=== PATIENT | female | born 1990 | race American Indian/Alaskan Native ===

== ENCOUNTER 2017-08-23 22:16 | Emergency (ER) | payer MEDICAID, OTHER ==
[2017-08-23 22:25] VITALS: BP 134/81
[2017-08-23 23:34] LABS: Bilirubin,Urine NEG (Negative); Blood,Urine LG (Negative); Ketones,Urine NEG (Negative); Leukocyte Esterase,Urine LG (Negative); Mucus,Urine FEW /HPF; Nitrite,Urine NEG (Negative); Urobilinogen,Urine < 2.0 mg/dL (<2.0)
[2017-08-23 23:37] LABS: RBC,Urine > 182.0 /HPF (0.0-6.0)
[2017-08-24] MEDS ORDERED: TYLENOL PO ONE (00:53)
[2017-08-24] MEDS ORDERED: KEFLEX PO ONE (00:53)
--- NOTE | 2017-08-24 01:42 | Emergency Department Report ---
ED Female HPI - General Chief complaint: Urogenital-Female Stated complaint: POSS. UTI Time Seen by Provider: 08/24/17 00:51 Source: patient Mode of arrival: Ambulatory Limitations: No Limitations - History of Present Illness Initial comments: pt is a 26 y/o aaf who presents for urinary urgency frequency and dysuria no hematuria no vaginal discharge no abdominal pain no fever chills or n/v no back pain MD Complaint: dysuria Onset/Timin -: days(s) Location: suprapubic Radiation: L flank Severity: moderate Severity scale (0 -10): 4 Quality: aching Consistency: intermittent Worsens with: urination Are you Now?: No Last Menstrual Period: 08/09/17 EDC: 05/16/18 Associated Symptoms: dysuria. denies: vaginal discharge, vaginal bleeding, abdominal pain, nausea/vomiting, fever/chills, headaches, loss of appetite, hematuria, rash, seizure, shortness of breath, syncope, weakness - Related Data Sexually active: Yes : 2 Para: 2 A: 0 Previous Rx's Medication Instructions Recorded Last Taken Type Cephalexin [Keflex] 500 mg PO Q6H #28 capsule 08/29/14 Unknown Rx Potassium Chloride 10 meq PO QDAY #3 capsule.er 08/29/14 Unknown Rx Vit-Fe Fumar-FA [ 1 each PO QDAY #90 tablet 08/29/14 11/03/14 10:00 Rx Vitamin] 1 tab Cephalexin [Keflex] 500 mg PO Q12HR #14 cap 08/24/17 Unknown Rx Ibuprofen 800 mg PO TID PRN #30 tablet 08/24/17 Unknown Rx Allergies Allergy/AdvReac Type Severity Reaction Status Date / Time latex Allergy Swelling Verified 11/07/14 19:34 ED Review of Systems ROS: Stated complaint: POSS. UTI Other details as noted in HPI Constitutional: denies: chills, fever Eyes: denies: eye pain, eye discharge, vision change ENT: denies: ear pain, throat pain Respiratory: denies: cough, shortness of breath, wheezing Cardiovascular: denies: chest pain, palpitations Endocrine: no symptoms reported Gastrointestinal: denies: abdominal pain, nausea, diarrhea Genitourinary: urgency, dysuria, frequency. denies: hematuria, discharge, abnormal menses, dyspareunia Musculoskeletal: denies: back pain, joint swelling, arthralgia Skin: denies: rash, lesions Neurological: denies: headache, weakness, paresthesias Psychiatric: denies: anxiety, depression Hematological/Lymphatic: denies: easy bleeding, easy bruising ED Past Medical Hx - Past Medical History Hx Hypertension: No Hx Congestive Heart Failure: No Hx Diabetes: No Hx Deep Vein Thrombosis: No Hx Renal Disease: No Hx Sickle Cell Disease: No Hx Seizures: No Hx Psychiatric Treatment: Yes (anxiety) Hx Asthma: Yes (last attack 08/24) Hx COPD: No - Social History Smoking Status: Never Smoker - Medications Home Medications: Home Medications Medication Instructions Recorded Confirmed Last Taken Type Cephalexin [Keflex] 500 mg PO Q6H #28 capsule 08/29/14 11/05/14 Unknown Rx Potassium Chloride 10 meq PO QDAY #3 capsule.er 08/29/14 11/05/14 Unknown Rx Vit-Fe Fumar-FA [ 1 each PO QDAY #90 tablet 08/29/14 11/05/14 11/03/14 10:00 Rx Vitamin] 1 tab Cephalexin [Keflex] 500 mg PO Q12HR #14 cap 08/24/17 Unknown Rx Ibuprofen 800 mg PO TID PRN #30 tablet 08/24/17 Unknown Rx ED Physical Exam - General Limitations: No Limitations General appearance: alert, in no apparent distress - Head Head exam: Present: atraumatic, normocephalic - Eye Eye exam: Present: normal appearance - ENT ENT exam: Present: mucous membranes moist - Neck Neck exam: Present: normal inspection - Respiratory Respiratory exam: Present: normal lung sounds bilaterally. Absent: respiratory distress - Cardiovascular Cardiovascular Exam: Present: regular rate, normal rhythm. Absent: systolic murmur, diastolic murmur, rubs, gallop - GI/Abdominal GI/Abdominal exam: Present: soft, normal bowel sounds - Rectal Rectal exam: Present: deferred - External exam: Present: other (exam deferred ) - Extremities Exam Extremities exam: Present: normal inspection - Back Exam Back exam: Present: normal inspection - Neurological Exam Neurological exam: Present: alert, oriented X3 - Psychiatric Psychiatric exam: Present: normal affect, normal mood - Skin Skin exam: Present: warm, dry, intact, normal color. Absent: rash ED Course Vital Signs 08/23/17 22:19 Temperature 98.8 F Pulse Rate 87 Respiratory 16 Rate Blood Pressure 134/81 O2 Sat by Pulse 98 Oximetry ED Medical Decision Making - Lab Data Laboratory Tests 08/23/17 08/24/17 Unknown 00:52 Urine Color Yellow Urine Turbidity Slightly-cloudy Urine pH 8.0 H Ur Specific [place] 1.017 Urine Protein 100 mg/dl Urine Glucose (UA) Neg Urine Ketones Neg Urine Blood Lg Urine Nitrite Neg Urine Bilirubin Neg Urine Urobilinogen < 2.0 Ur Leukocyte Esterase Lg Urine WBC (Auto) 172.0 H Urine RBC (Auto) > 182.0 U Epithel Cells (Auto) 1.0 Urine Mucus Few Urine HCG, Qual Negative - Medical Decision Making pt is a 26 y/o aaf who presents for urinary urgency frequency and dysuria no hematuria no vaginal discharge no abdominal pain no fever chills or n/v no back pain exam no cva tendernes abd soft nontender bs noted x 4 quads no pelvic pain no fever no chills, ua: leuk, wbc, there is no vaginal discharge. plan: keflex x 7 days , follow up with pcp return to ed if symptoms worsen pt verbalized agreement and understanding of discharge plan. Critical care attestation.: If time is entered above; I have spent that time in minutes in the direct care of this critically ill patient, excluding procedure time. ED Disposition Clinical Impression: UTI (urinary tract infection) Qualifiers: Urinary tract infection type: acute cystitis Hematuria presence: without hematuria Qualified Code(s): N30.00 - Acute cystitis without hematuria Disposition: DC-01 TO HOME OR SELFCARE Is pt being admited?: No Does the pt Need Aspirin: No Condition: Good Instructions: Urinary Tract Infection in Women (ED) Prescriptions: Cephalexin [Keflex] 500 mg PO Q12HR #14 cap Ibuprofen 800 mg PO TID PRN #30 tablet PRN Reason: Pain Referrals: PRIMARY CARE, [Primary Care Provider] - 3-5 Days Forms: Work/School Release Form(ED) Time of Disposition: 01:46
== END 2017-08-24 01:52 | disposition home or self-care (01) ==
LOC: ED 22:16
DX: N30.00 Acute cystitis without hematuria (principal)
CPT/HCPCS: 81001; 81025; 99283

== ENCOUNTER 2017-10-24 12:32 | Emergency (ER) | payer SELFPAY ==
--- NOTE | 2017-10-24 14:54 | Emergency Department Report ---
<MANUELA RUBIO - Last Filed: 10/24/17 14:50> ED Female HPI - General Chief complaint: Vaginal Bleeding Stated complaint: VAGINAL BLEEDING Time Seen by Provider: 10/24/17 14:43 Source: patient Mode of arrival: Ambulatory Limitations: No Limitations - History of Present Illness MD Complaint: vaginal bleeding, pelvic pain -: Gradual Radiation: suprapubic Quality: other (pressure and fullness) Consistency: intermittent Are you Now?: Yes (possible 12 weeks ) Associated Symptoms: denies other symptoms - Related Data Sexually active: Yes : 3 Para: 3 (one set of twins) Previous Rx's Medication Instructions Recorded Last Taken Type Cephalexin [Keflex] 500 mg PO Q6H #28 capsule 08/29/14 Unknown Rx Potassium Chloride 10 meq PO QDAY #3 capsule.er 08/29/14 Unknown Rx Vit-Fe Fumar-FA [ 1 each PO QDAY #90 tablet 08/29/14 11/03/14 10:00 Rx Vitamin] 1 tab Cephalexin [Keflex] 500 mg PO Q12HR #14 cap 08/24/17 Unknown Rx Ibuprofen 800 mg PO TID PRN #30 tablet 08/24/17 Unknown Rx Allergies Allergy/AdvReac Type Severity Reaction Status Date / Time latex Allergy Swelling Verified 11/07/14 19:34 ED Review of Systems ROS: Stated complaint: VAGINAL BLEEDING Other details as noted in HPI Comment: All other systems reviewed and negative Constitutional: denies: chills, diaphoresis Respiratory: denies: cough, orthopnea Cardiovascular: denies: chest pain, palpitations, dyspnea on exertion Gastrointestinal: abdominal pain. denies: nausea, vomiting, diarrhea, constipation, hematemesis, hematochezia Genitourinary: denies: urgency, dysuria ED Past Medical Hx - Past Medical History Hx Hypertension: No Hx Congestive Heart Failure: No Hx Diabetes: No Hx Deep Vein Thrombosis: No Hx Renal Disease: No Hx Sickle Cell Disease: No Hx Seizures: No Hx Psychiatric Treatment: Yes (anxiety) Hx Asthma: Yes (last attack 08/24) Hx COPD: No - Social History Smoking Status: Never Smoker Substance Use Type: None - Medications Home Medications: Home Medications Medication Instructions Recorded Confirmed Last Taken Type Cephalexin [Keflex] 500 mg PO Q6H #28 capsule 08/29/14 11/05/14 Unknown Rx Potassium Chloride 10 meq PO QDAY #3 capsule.er 08/29/14 11/05/14 Unknown Rx Vit-Fe Fumar-FA [ 1 each PO QDAY #90 tablet 08/29/14 11/05/14 11/03/14 10:00 Rx Vitamin] 1 tab Cephalexin [Keflex] 500 mg PO Q12HR #14 cap 08/24/17 Unknown Rx Ibuprofen 800 mg PO TID PRN #30 tablet 08/24/17 Unknown Rx ED Physical Exam - General Limitations: No Limitations General appearance: alert, in no apparent distress - Head Head exam: Present: atraumatic, normocephalic, normal inspection - Eye Eye exam: Present: normal appearance, PERRL - ENT ENT exam: Present: normal exam, normal orophraynx, mucous membranes moist - Neck Neck exam: Present: normal inspection, full ROM. Absent: tenderness - Respiratory Respiratory exam: Present: normal lung sounds bilaterally. Absent: respiratory distress, wheezes, rales, rhonchi, chest wall tenderness, accessory muscle use, decreased breath sounds, prolonged expiratory - Cardiovascular Cardiovascular Exam: Present: regular rate, normal rhythm, normal heart sounds - GI/Abdominal GI/Abdominal exam: Present: soft, tenderness (suprapubic tenderness), normal bowel sounds. Absent: distended, guarding, rebound, rigid, organomegaly, mass, bruit, pulsatile mass - Extremities Exam Extremities exam: Present: normal inspection, full ROM - Back Exam Back exam: Present: normal inspection. Absent: CVA tenderness (R), CVA tenderness (L) - Neurological Exam Neurological exam: Present: alert, oriented X3, CN II-XII intact, normal gait - Skin Skin exam: Present: warm, intact, normal color ED Course Vital Signs 10/24/17 12:34 Temperature 97.9 F Pulse Rate 87 Respiratory 18 Rate Blood Pressure 134/80 O2 Sat by Pulse 100 Oximetry Critical care attestation.: If time is entered above; I have spent that time in minutes in the direct care of this critically ill patient, excluding procedure time. ED Disposition Clinical Impression: Threatened in first trimester Subchorionic hemorrhage in first trimester Qualifiers: Fetus number: single or unspecified fetus Qualified Code(s): O41.8X10 - Other specified disorders of amniotic fluid and membranes, first trimester, not applicable or unspecified; O46.8X1 - Other antepartum hemorrhage, first trimester; O46.8X1 - Other antepartum hemorrhage, first trimester Disposition: DC-01 TO HOME OR SELFCARE Condition: Stable Instructions: Threatened Miscarriage (ED), (ED) Additional Instructions: Make sure to follow up with your [facility] Dr. Tato Moreno as discussed. Take all your medications as you've been prescribed. Abstain from sex for the next 2 weeks. If you have any worsening symptoms or develop new symptoms please return to ED immediately. Referrals: TATO MORENO MD [Primary Care Provider] - 3-5 Days Forms: Accompanied Note, Work/School Release Form(ED) <ALEX CHATTERJEEMARNIANIKA Corado - Last Filed: 10/24/17 23:15> ED Female HPI - History of Present Illness Initial comments: Patient is a 27-year-old female at approximately 12 weeks gestation who presents to the ED fall and not from a [facility] visit earlier today complaining of vaginal bleeding 3 days. Patient states she was seen by [facility] earlier today and was told to follow-up in the ER as a precaution. Patient denies any pelvic pain. Patient states that since this she has not had an ultrasound and was worried when she started to see some spotting. She states that her [facility] is Dr. Tato Moreno. She states bleeding is resolved today and is not currently bleeding. Patient denies any fever/chills/nausea vomiting/ chest pain/shortness of breath ED Medical Decision Making - Lab Data Result diagrams: 10/24/17 15:04 10/24/17 15:04 - Radiology Data Radiology results: report reviewed, image reviewed INAL REPORT PROCEDURE: US OB lt; = 14 WEEKS FETUS TECHNIQUE: Real-time transabdominal sonography of the uterus, placenta, amniotic fluid, adnexa, and fetus was performed with image documentation. Measurements were obtained to determine age/size. M-mode Doppler was used to document heartbeat. CPT 19434 HISTORY: abdominal pain, COMPARISON: No prior studies are available for comparison. FINDINGS: CRL: 50 mm, which corresponds to a gestational age of: 11 weeks, 5 days. Embryonic Cardiac Activity: 162 beats per minute Gestational Sac: There is a small crescentic hypoechoic area, which measures 1.2 x 0.6 x 0.8 centimeters, likely a small subchorionic hemorrhage. Amniotic fluid: Normal. Cervix: Limited evaluation Right Ovary: Normal. Left Ovary: Normal. Estimated delivery date: 05/10/2018 IMPRESSION: Single live intrauterine gestation at approximately 11 weeks 5 days. EDC by US 05/10/2018 Small subchorionic hemorrhage. Transcribed By: [facility] Dictated By: AYAH OLIVAREZ M.D. Electronically Authenticated By: AYAH OLIVAREZ M.D. Signed Date/Time: 10/24/17 1623 - Medical Decision Making 27-year-old female presents with vaginal spotting during first trimester ED course: CBC, BMP, U/S ordered. Ultrasound shows single intrauterine as reported above. I discussed this findings with the patient. I discussed with patient that her BUN/creatinine suggest that she is dehydrated and to make sure she increases her water intake daily. Patient stated that vaginal spotting resolved today. Patient was seen by her [facility] today pelvic examination was performed which patient states was told was normal with no bleeding seen. Patient states she had not gotten an ultrasound this wanted to make sure that she had a live . I discussed with patient To follow-up with her LINE [facility] Dr. Moreno in next couple days. I discussed this patient is symptoms worsen or she sees Worsening bleeding to return to ED immediately. ED Disposition Is pt being admited?: No Does the pt Need Aspirin: No Time of Disposition: 22:59
[2017-10-24 15:12] LABS: Bilirubin,Urine NEG (Negative); Blood,Urine NEG (Negative); Color,Urine Yellow (Yellow); Mucus,Urine 2+ /HPF; Nitrite,Urine NEG (Negative)
[2017-10-24 15:29] LABS: Basophils % (Auto) 0.4 % (0.0-1.8); Eosinophils % (Auto) 0.9 % (0.0-4.3); Hematocrit 37.4 % (30.3-42.9); Hemoglobin 12.4 gm/dl (10.1-14.3); Lymphocytes # (Auto) 1.8 K/mm3 (1.2-5.4); Mean Corpuscular HGB Conc 33 % (30-34); Mean Corpuscular Hemoglobin 28 pg (28-32); Mean Corpuscular Volume 83 fl (79-97); Monocytes # (Auto) 0.5 K/mm3 (0.0-0.8); Platelet Count 268 K/mm3 (140-440); Red Blood Count 4.51 M/mm3 (3.65-5.03); Red Cell Distribution Width 14.6 % (13.2-15.2)
[2017-10-24 15:34] LABS: BUN/Creatinine Ratio 13; Blood Urea Nitrogen 5 mg/dL (7-17); Calcium 8.7 mg/dL (8.4-10.2); Hemolysis Index 9
[2017-10-24 15:39] LABS: INR 1.08 (0.87-1.13)
[2017-10-24 15:40] LABS: Partial Thromboplastin Time 27.5 Sec. (24.2-36.6)
--- NOTE | 2017-10-24 20:26 | Ultrasound Report ---
FINAL REPORT PROCEDURE: US OB < = 14 WEEKS FETUS TECHNIQUE: Real-time transabdominal sonography of the uterus, placenta, amniotic fluid, adnexa, and fetus was performed with image documentation. Measurements were obtained to determine age/size. M-mode Doppler was used to document heartbeat. CPT 41401 HISTORY: abdominal pain, COMPARISON: No prior studies are available for comparison. FINDINGS: CRL: 50 mm, which corresponds to a gestational age of: 11 weeks, 5 days. Embryonic Cardiac Activity: 162 beats per minute Gestational Sac: There is a small crescentic hypoechoic area, which measures 1.2 x 0.6 x 0.8 centimeters, likely a small subchorionic hemorrhage. Amniotic fluid: Normal. Cervix: Limited evaluation Right Ovary: Normal. Left Ovary: Normal. Estimated delivery date: 05/10/2018 IMPRESSION: Single live intrauterine gestation at approximately 11 weeks 5 days. EDC by US 05/10/2018 Small subchorionic hemorrhage.
[2017-10-24 23:11] VITALS: BP 122/82
== END 2017-10-24 23:10 | disposition home or self-care (01) ==
LOC: ED 12:32
DX: O20.0 Threatened abortion (principal); O41.8X10 Other specified disorders of amniotic fluid and membranes, first trimester, not applicable or unspecified; Z3A.14 14 weeks gestation of pregnancy; Z91.040 Latex allergy status
CPT/HCPCS: 36415; 76801; 80048; 81001; 84702; 85025; 85610; 85730; 99284

== ENCOUNTER 2018-04-10 22:50 | Outpatient (CLI) | payer OTHER ==
[2018-04-11 00:10] VITALS: BP 113/63
== END 2018-04-11 00:59 | disposition home or self-care (01) ==
LOC: TRG 22:50
PROVIDERS: ATTEND Obstetrics & Gynecology
DX: O26.893 Other specified pregnancy related conditions, third trimester (principal); M54.9 Dorsalgia, unspecified; Z3A.35 35 weeks gestation of pregnancy
CPT/HCPCS: 59025

== ENCOUNTER 2018-04-29 22:16 | Inpatient (IN) | payer OTHER ==
[2018-04-29] MEDS ORDERED: LACTATED RINGERS 1,000 ML ONE (22:24)
[2018-04-29] MEDS ORDERED: ZOFRAN IV PRN (22:25)
[2018-04-29] MEDS ORDERED: NARCAN 0.4 MG/1 ML IV PRN (22:25)
[2018-04-29] MEDS ORDERED: BRETHINE IVP PRN (22:25)
[2018-04-29] MEDS ORDERED: MINERAL OIL PO PRN (22:25)
[2018-04-29] MEDS ORDERED: PHENERGAN PO PRN (22:25)
[2018-04-29] MEDS ORDERED: SUBLIMAZE IV PRN (22:25)
[2018-04-29] MEDS ORDERED: STADOL IV PRN (22:25)
[2018-04-29] MEDS ORDERED: BRETHINE SUB-Q PRN (22:25)
[2018-04-29] MEDS ORDERED: XYLOCAINE 2% INFILTRATI ONE (22:25)
[2018-04-29] MEDS ORDERED: POLYCILLIN/NS 2 GM/100 ML 2 GM/100 ML BAG IV ONE (22:25)
--- NOTE | 2018-04-29 22:35 | History and Physical Report ---
History of Present Illness Date of examination: 04/29/18 Date of admission: 04/29/18 22:16 Chief complaint: Labor History of present illness: Pt is a 27yo BF EDC 05/10/18; EGA 38 3/7 weeks presents to L&D complaining of RUC's q 3-4 mins. She received care at [facility] since15 weeks, and course has been unremarkable. records are not available and GBS is unknown. Past History Past Medical History: asthma Past Surgical History: no surgical history Family/Genetic History: none Social history: no significant social history, single - Obstetrical History Expected Date of Delivery: 05/10/18 Actual Gestation: 38 Week(s) 6 Day(s) : 3 Medications and Allergies Allergies Allergy/AdvReac Type Severity Reaction Status Date / Time latex Allergy Swelling Verified 11/07/14 19:34 Home Medications Medication Instructions Recorded Confirmed Last Taken Type Potassium Chloride 10 meq PO QDAY #3 capsule.er 08/29/14 04/30/18 Unknown Rx Vit-Fe Fumar-FA [ 1 each PO QDAY #90 tablet 08/29/14 04/30/18 11/03/14 10:00 Rx Vitamin] 1 tab cephALEXin [Keflex] 500 mg PO Q6H #28 capsule 08/29/14 04/30/18 Unknown Rx Ibuprofen 800 mg PO TID PRN #30 tablet 08/24/17 04/30/18 Unknown Rx cephALEXin [Keflex] 500 mg PO Q12HR #14 cap 08/24/17 04/30/18 Unknown Rx Review of Systems All systems: negative - Physical Exam Breasts: Positive: deferred Cardiovascular: Regular rate Lungs: Positive: Clear to auscultation Abdomen: Positive: normal appearance Genitourinary (Female): Positive: normal external genitalia Uterus: Positive: enlarged Extremities: Positive: normal - Obstetrical FHR: category 1 Uterine Contraction Monitor Mode: External Cervical Dilatation: 5 (per nurse) Cervical Effacement Percentage: 80 (per nurse) station: -2 Uterine Contraction Pattern: Regular Uterine Tone Measurement Phase: Contraction Uterine Contraction Intensity: Strong/Firm Results Result Diagrams: 04/30/18 13:17 All other labs normal. Assessment and Plan - Patient Problems (1) 38 weeks gestation of Onset Date: 04/30/18 Current Visit: Yes Status: Acute Plan to address problem: A: IUP @ 38 3/7 weeks in labor P: Admit to L&D for expectant vaginal delivery IV Ampicillin Obtain records
[2018-04-29] MEDS: LACTATED RINGERS 1,000 ML IV SCH (22:40)
[2018-04-29 22:48] LABS: Hematocrit 30.2 % (30.3-42.9); Hemoglobin 9.5 gm/dl (10.1-14.3); Mean Corpuscular HGB Conc 31 % (30-34); Mean Corpuscular Volume 72 fl (79-97); Platelet Count 256 K/mm3 (140-440); Red Blood Count 4.19 M/mm3 (3.65-5.03); Red Cell Distribution Width 18.8 % (13.2-15.2)
[2018-04-29 22:50] LABS: Mean Corpuscular Hemoglobin 23 pg (28-32)
[2018-04-29] MEDS ORDERED: PITOCin/NS 20 UNIT/1000ML DRIP 20 UNITS/1,000 ML BAG IV SCH (23:00)
[2018-04-29] MEDS ORDERED: PITOCin/NS 30 UNIT/500ML 30 UNITS/500 ML BAG IV SCH ×2 (23:00)
--- NOTE | 2018-04-30 00:33 | Procedure Note ---
OB Delivery Note - Delivery Date of Delivery: 04/30/18 Surgeon: JIM MONTIEL Estimated blood loss: 200cc - Vaginal Delivery presentation: vertex Delivery position: OA Intrapartum events: precipitous labor- <3hr Delivery induction: none Delivery augmentation: rupture of membranes Delivery monitor: external FHT, external uterine Route of delivery: Delivery placenta: spontaneous Delivery cord: 3 umbilical vessels Episiotomy: none Delivery laceration: none Anesthesia: none Delivery comments: delivered OA and placed on Mom's chest for [id number] bonding and delayed cord clamping, cut by Dad - Infant A at 1 minute: 9 at 5 minutes: 9 Gender: Male ([id number])
[2018-04-30] MEDS ORDERED: TYLENOL PO PRN (00:39)
[2018-04-30] MEDS ORDERED: PHENERGAN PO PRN (00:39)
[2018-04-30] MEDS ORDERED: MILK OF MAGNESIA PO PRN (00:39)
[2018-04-30] MEDS ORDERED: PHENERGAN PR PRN (00:39)
[2018-04-30] MEDS ORDERED: BENADRYL PO PRN (00:39)
[2018-04-30] MEDS ORDERED: ZOFRAN IV PRN (00:39)
[2018-04-30] MEDS ORDERED: DULCOLAX PR PRN (00:39)
[2018-04-30] MEDS ORDERED: LANSINOH TP PRN (00:39)
[2018-04-30] MEDS ORDERED: TUCKS PAD TP PRN (00:39)
[2018-04-30] MEDS ORDERED: SODIUM CHLORIDE FLUSH SYRINGE 10 ML IV PRN (01:00)
[2018-04-30] MEDS ORDERED: PITOCin/NS 20 UNIT/1000ML DRIP 20 UNITS/1,000 ML BAG IV SCH (01:00)
[2018-04-30] MEDS: LACTATED RINGERS 1,000 ML IV SCH (02:10)
[2018-04-30] MEDS ORDERED: AMPICILLIN/NS 1 GM/50 ML 1 GM/50 ML BAG IV SCH (02:28)
[2018-04-30] MEDS: MOTRIN PO SCH ×3 (06:15→22:15)
[2018-04-30] MEDS: FEOSOL PO SCH ×2 (10:10→22:15)
[2018-04-30] MEDS: PRENATAL VITAMIN PO SCH (10:10)
[2018-04-30] MEDS: COLACE PO SCH ×2 (10:10→22:15)
[2018-04-30] MEDS: NORCO 5/325 PO PRN (11:21)
[2018-04-30 13:32] LABS: Hematocrit 26.7 % (30.3-42.9); Hemoglobin 8.3 gm/dl (10.1-14.3)
[2018-05-01] MEDS ORDERED: M-M-R II VACCINE SUB-Q ONE (00:39)
[2018-05-01] MEDS: MOTRIN PO SCH ×3 (04:35→18:00)
[2018-05-01] MEDS ORDERED: BOOSTRIX IM ONE (06:00)
[2018-05-01] MEDS: NORCO 5/325 PO PRN (08:15)
--- NOTE | 2018-05-01 09:59 | Progress Note ---
Assessment and Plan - Patient Problems (1) (normal spontaneous vaginal delivery) Onset Date: 05/01/18 Current Visit: Yes Status: Resolved Plan to address problem: A: S/P - PPD #1 Doing well Asymptomatic anemia - stable P: May go home tomorrow. Subjective - Subjective Date of service: 05/01/18 Principal diagnosis: s/p - PPD #1 Interval history: Pt is feeling well without complaints. Bleeding improved. Patient reports: appetite normal, voiding normally, pain well controlled, flatus , ambulating normally, no dizzy ambulation, no nauseated : doing well, bottle feeding Objective - Vital Signs Latest vital signs: Vital Signs Temp Pulse Resp BP BP Pulse Ox 05/01/18 07:58 98.6 F 78 13 131/77 98 05/01/18 05:35 18 05/01/18 04:35 18 05/01/18 00:00 98.2 F 81 18 111/66 04/30/18 23:15 18 04/30/18 22:15 18 04/30/18 21:45 98.2 F 88 18 128/73 04/30/18 17:01 98.9 F 76 18 125/78 04/30/18 10:11 98.3 F 125/78 Intake and Output 04/30/18 05/01/18 05/01/18 22:59 06:59 14:59 Intake Total 720 120 Output Total 3 1 Balance 717 119 Intake: Oral 720 Intake, Free Water 120 Output: Urine 3 1 Void 3 1 Other: Total, Intake Amount 240 Total, Output Amount 1 1 # Voids Void 2 1 - Exam Breasts: Present: deferred Cardiovascular: Present: Regular rate Lungs: Present: Clear to auscultation Abdomen: Present: normal appearance, soft Uterus: Present: normal, firm, fundal height below umbilicus Extremities: Present: normal - Labs Labs: Abnormal lab results 04/30/18 Range/Units 13:17 Hgb 8.3 L (10.1-14.3) gm/dl Hct 26.7 L (30.3-42.9) % Laboratory Tests 04/29/18 04/29/18 04/29/18 22:30 22:30 22:30 WBC 8.3 RBC 4.19 Hgb 9.5 L Hct 30.2 L MCV 72 L MCH 23 L MCHC 31 RDW 18.8 H Plt Count 256 RPR Nonreactive Blood Type O POSITIVE Antibody Screen Negative 04/30/18 13:17 WBC RBC Hgb 8.3 L Hct 26.7 L MCV MCH MCHC RDW Plt Count RPR Blood Type Antibody Screen
[2018-05-01] MEDS: PRENATAL VITAMIN PO SCH (10:15)
[2018-05-01] MEDS: FEOSOL PO SCH ×2 (10:15→22:23)
[2018-05-01] MEDS: COLACE PO SCH ×2 (10:20→22:23)
[2018-05-02] MEDS: MOTRIN PO SCH ×3 (00:02→13:00)
--- NOTE | 2018-05-02 10:13 | Discharge Summary ---
Providers - Providers Date of Admission: 04/29/18 22:16 Date of discharge: 05/02/18 Attending physician: JIM MONTIEL Primary care physician: JIM MONTIEL Hospitalization Reason for admission: active labor, IUP at term Delivery: Episiotomy: none Other procedures: none complications: none Discharge diagnosis: IUP at term delivered baby: male Hospital course: Unremarkable. Condition at discharge: Good Disposition: DC-01 TO HOME OR SELFCARE - Discharge Diagnoses (1) 38 weeks gestation of Status: Resolved Plan - Discharge Medications Prescriptions: Ferrous Sulfate [Feosol 325 MG tab] 325 mg PO BID #60 tablet Ibuprofen [Motrin 600 MG tab] 600 mg PO Q6HR #30 tablet Vit-Fe Fumar-FA [ Vitamin] 1 each PO QDAY #30 tablet - Provider Discharge Summary Activity: routine, no sex for 6 weeks, no heavy lifting 4 weeks, no strenuous exercise Diet: routine Instructions: routine Additional instructions: [] Smoking cessation referral if applicable(refer to patient education folder for contact #) [] Refer to [facility] Booklet Call your doctor immediately for: * Fever > 100.5 * Heavy vaginal bleeding ( >1 pad per hour) * Severe persistent headache * Shortness of breath * Reddened, hot, painful area to leg or breast * Drainage or odor from incision. * Keep incision clean and dry at all times and follow doctor's instructions regarding bathing/showering - Follow up plan Follow up: JIM MONTIEL MD [Primary Care Provider] - 6 Weeks
[2018-05-02] MEDS: COLACE PO SCH (10:56)
[2018-05-02] MEDS: PRENATAL VITAMIN PO SCH (10:56)
[2018-05-02 12:27] VITALS: BP 113/66
[2018-05-02] MEDS: FEOSOL PO SCH (13:27)
== END 2018-05-02 18:12 | disposition home or self-care (01) | DRG 775 ==
LOC: LD 22:16 → OB 04-30 02:19
PROVIDERS: ADMIT Obstetrics & Gynecology; ATTEND Obstetrics & Gynecology
PROC: 10E0XZZ Delivery of Products of Conception, External Approach (ICD-10-PCS; principal; 2018-04-30)
DX: O62.3 Precipitate labor (principal); O99.52 Diseases of the respiratory system complicating childbirth; Z3A.38 38 weeks gestation of pregnancy; Z37.0 Single live birth; O99.02 Anemia complicating childbirth; D64.9 Anemia, unspecified; J45.909 Unspecified asthma, uncomplicated
CPT/HCPCS: 36415; 85014; 85018; 85027; 86592; 86850; 86900; 86901; 99211; G0463; J0290; J0595; J2590; J7120

== ENCOUNTER 2018-10-31 16:55 | Emergency (ER) | payer OTHER ==
[2018-10-31 20:05] VITALS: BP 134/83
--- NOTE | 2018-10-31 20:54 | Emergency Department Report ---
ED Back Pain/Injury HPI - General Chief Complaint: Back Pain/Injury Stated Complaint: LOWER BACK/HEAD PAIN Time Seen by Provider: 10/31/18 20:16 Source: patient Mode of arrival: Ambulatory Limitations: No Limitations - History of Present Illness Initial Comments: This is a 28-year-old -Iranian female who presents with neck and low back pain. Patient states she didn't have back pain since given 6 ago which has increased over the last week. She reports pain as 5 out of 10 on pain scale and worse with movement. She reports as a dull achy sensation that is intermittent. She also admits to frequency and urgency. She denies dysuria, n umbness or tingling, swelling, bruising, paresthesias, weakness, change in urination or bowel pattern. MD Complaint: back pain Onset/Timin -: week(s) Similar Symptoms Previously: No Place: home Radiation: none Severity: moderate Severity scale (0 -10): 5 Quality: dull, aching Consistency: intermittent Improves With: none Worsens With: movement Context: unknown Associated Symptoms: denies: numbness, difficulty urinating, incontinence, fever/chills - Related Data Previous Rx's Medication Instructions Recorded Last Taken Type Potassium Chloride 10 meq PO QDAY #3 capsule.er 08/29/14 Unknown Rx Vit-Fe Fumar-FA [ 1 each PO QDAY #90 tablet 08/29/14 11/03/14 10:00 Rx Vitamin] 1 tab cephALEXin [Keflex] 500 mg PO Q6H #28 capsule 08/29/14 Unknown Rx Ibuprofen 800 mg PO TID PRN #30 tablet 08/24/17 Unknown Rx cephALEXin [Keflex] 500 mg PO Q12HR #14 cap 08/24/17 Unknown Rx Ferrous Sulfate [Feosol 325 MG tab] 325 mg PO BID #60 tablet 05/02/18 Unknown Rx Ibuprofen [Motrin 600 MG tab] 600 mg PO Q6HR #30 tablet 05/02/18 Unknown Rx Vit-Fe Fumar-FA [ 1 each PO QDAY #30 tablet 05/02/18 Unknown Rx Vitamin] Naproxen 500 mg PO TID PRN #12 tablet 10/31/18 Unknown Rx Allergies Allergy/AdvReac Type Severity Reaction Status Date / Time latex Allergy Swelling Verified 11/07/14 19:34 ED Review of Systems ROS: Stated complaint: LOWER BACK/HEAD PAIN Other details as noted in HPI Constitutional: denies: chills, fever Respiratory: denies: cough, shortness of breath, wheezing Cardiovascular: denies: chest pain, palpitations Gastrointestinal: denies: abdominal pain, nausea, diarrhea Genitourinary: denies: urgency, dysuria, discharge Musculoskeletal: back pain, arthralgia (neck pain). denies: joint swelling Skin: denies: rash, lesions Neurological: denies: headache, weakness, paresthesias Psychiatric: denies: anxiety, depression ED Past Medical Hx Family history: no significant family history ED Back Pain Physical Exam - Exam General: Vital signs noted. No distress. Alert and acting appropriately. Back/Abdomen: No Straight Leg Raise Pain Neuro: Yes Normal Sensation, Yes Normal DTR's, Yes Normal Gait, No Motor Weakness ED Course Vital Signs 10/31/18 20:02 Temperature 97.7 F Pulse Rate 80 Respiratory 18 Rate Blood Pressure 134/83 O2 Sat by Pulse 100 Oximetry ED Medical Decision Making - Radiology Data Radiology results: report reviewed FINAL REPORT PROCEDURE: XR SPINE LUMBOSACRAL 2-3V TECHNIQUE: AP and lateral views of the lumbar spine HISTORY: low back pain COMPARISON: No prior studies are available for comparison. FINDINGS: No scoliosis. Vertebral body heights and alignment are maintained. Disc spaces are preserved. IMPRESSION: No acute osseous abnormality is seen FINAL REPORT PROCEDURE: Cervical spine. TECHNIQUE: Four views. HISTORY: Neck pain. COMPARISON: No prior studies are available for comparison. FINDINGS: The cervical vertebrae have normal height and alignment. There are no fractures. The disc spaces are well maintained. The prevertebral soft tissues have normal thickness. IMPRESSION: Normal study. - Medical Decision Making Patient was examined by me. Vitals are normal and patient is in no acute distress. Obtained a urinalysis, urine test, and x-ray of C-spine and L-spine. Urine test is negative and urinalysis unremarkable. X-rays dictated. Radiologist report reviewed by myself with no acute findings. Patient informed of results. Findings consistent with muscle strain. Start naproxen for pain. Plan discussed with patient to discharge home and treat outpatient. Patient discharged home in stable condition. Follow up with PCP in 2-3 days. Critical care attestation.: If time is entered above; I have spent that time in minutes in the direct care of this critically ill patient, excluding procedure time. ED Disposition Clinical Impression: Neck pain, Strain of muscle, fascia and tendon of lower back, initial encounter Low back pain Qualifiers: Chronicity: acute Back pain laterality: bilateral Sciatica presence: without sciatica Qualified Code(s): M54.5 - Low back pain Cervical muscle strain Qualifiers: Encounter type: initial encounter Qualified Code(s): S16.1XXA - Strain of muscle, fascia and tendon at neck level, initial encounter Disposition: TO HOME OR SELFCARE Is pt being admited?: No Does the pt Need Aspirin: No Condition: Stable Instructions: Muscle Strain (ED), Arthralgia (ED) Additional Instructions: Rest Use ice or heat on affected area for 20 minutes and off for 2 hours. Take pain medication as needed for pain. Follow up with Primary Care Provider in 2-3 days. Prescriptions: Naproxen 500 mg PO TID PRN #12 tablet PRN Reason: Pain , Severe (7-10) Referrals: ZAIDA MILES [Staff Physician] - 3-5 Days [facility] [Outside] - 3-5 Days [facility] [Outside] - 3-5 Days [facility] [Outside] - 3-5 Days Forms: Work/School Release Form(ED) Time of Disposition: 23:11 ED Neck EXAM - General Limitations: No Limitations - Neck 1 - Tenderness from C2 through C4, no erythema or swelling - Back Back exam: full ROM, paraspinal tenderness. denies: CVA tenderness (R), CVA tenderness (L), vertebral tenderness, rash noted Upper Back Exam: Full ROM, Muscle Tenderness/Spasm (right trapezius tenderness on the palpation). denies: Decreased ROM, Vertebral Point Tendernes, Splinting with Breathing - Neurological Neurological Exam: Positive: Alert, Oriented X3 - Psychiatric Psychiatric exam: Positive: normal affect, normal mood - Skin Skin exam: Positive: warm, dry, intact, normal color. Negative: rash
[2018-10-31 21:23] LABS: Bilirubin,Urine NEG (Negative); Blood,Urine NEG (Negative); Color,Urine Yellow (Yellow); Mucus,Urine FEW /HPF; Protein,Urine <15 mg/dL mg/dL (Negative); Urobilinogen,Urine < 2.0 mg/dL (<2.0)
[2018-10-31 21:25] LABS: HCG Qualitative,Urine Negative (Negative)
--- NOTE | 2018-10-31 23:01 | XRay Report ---
FINAL REPORT PROCEDURE: XR SPINE LUMBOSACRAL 2-3V TECHNIQUE: AP and lateral views of the lumbar spine HISTORY: low back pain COMPARISON: No prior studies are available for comparison. FINDINGS: No scoliosis. Vertebral body heights and alignment are maintained. Disc spaces are preserved. IMPRESSION: No acute osseous abnormality is seen
--- NOTE | 2018-10-31 23:19 | XRay Report ---
FINAL REPORT PROCEDURE: Cervical spine. TECHNIQUE: Four views. HISTORY: Neck pain. COMPARISON: No prior studies are available for comparison. FINDINGS: The cervical vertebrae have normal height and alignment. There are no fractures. The disc spaces are well maintained. The prevertebral soft tissues have normal thickness. IMPRESSION: Normal study.
== END 2018-10-31 23:15 | disposition home or self-care (01) ==
LOC: ED 16:55
DX: S16.1XXA Strain of muscle, fascia and tendon at neck level, initial encounter (principal); S39.012A Strain of muscle, fascia and tendon of lower back, initial encounter; X58.XXXA Exposure to other specified factors, initial encounter; Y93.89 Activity, other specified; Y92.89 Other specified places as the place of occurrence of the external cause; Y99.8 Other external cause status
CPT/HCPCS: 72040; 72100; 81001; 81025

== ENCOUNTER 2021-09-12 03:11 | Emergency (ER) | payer OTHER ==
[2021-09-12] MEDS ORDERED: ACETAMINOPHEN 325 MG TAB PO ONE (06:58)
--- NOTE | 2021-09-12 07:01 | Emergency Department Report ---
ED Female HPI - General Chief complaint: Abdominal Pain Stated complaint: LOW BACK PAIN ABDOMINAL PAIN Time Seen by Provider: 09/12/21 06:48 Source: patient Mode of arrival: Ambulatory Limitations: No Limitations - History of Present Illness Initial comments: 30-year-old female presents to the ER today with complaints of left lower quadrant/suprapubic pain. She states that the pain started a day ago. She states that the pain has been intermittent in nature. She denies any associated UTI symptoms, abnormal vaginal discharge or bleeding, nausea or vomiting, diarrhea, or back pain. She denies any fever or chills. She states that her last menstrual cycle was August 24. She states she is not concerned for . She is not currently on any control. She reports the same sexual partner is not concerned for any STDs. MD Complaint: pelvic pain -: days(s) (1) - Related Data Previous Rx's Medication Instructions Recorded Last Taken Type Potassium Chloride 10 meq PO QDAY #3 capsule.er 08/29/14 Unknown Rx Vit-Fe Fumar-FA [ 1 each PO QDAY #90 tablet 08/29/14 11/03/14 10:00 Rx Vitamin] 1 tab cephALEXin [Keflex] 500 mg PO Q6H #28 capsule 08/29/14 Unknown Rx Ibuprofen 800 mg PO TID PRN #30 tablet 08/24/17 Unknown Rx cephALEXin [Keflex] 500 mg PO Q12HR #14 cap 08/24/17 Unknown Rx Ferrous Sulfate [Feosol 325 MG tab] 325 mg PO BID #60 tablet 05/02/18 Unknown Rx Ibuprofen [Motrin 600 MG tab] 600 mg PO Q6HR #30 tablet 05/02/18 Unknown Rx Vit-Fe Fumar-FA [ 1 each PO QDAY #30 tablet 05/02/18 Unknown Rx Vitamin] Naproxen 500 mg PO TID PRN #12 tablet 10/31/18 Unknown Rx Allergies Allergy/AdvReac Type Severity Reaction Status Date / Time latex Allergy Swelling Verified 11/07/14 19:34 ED Review of Systems ROS: Stated complaint: LOW BACK PAIN ABDOMINAL PAIN Other details as noted in HPI Comment: All other systems reviewed and negative Constitutional: denies: chills, fever Eyes: denies: eye pain, eye discharge, vision change ENT: denies: ear pain, throat pain, dental pain, hearing loss, epistaxis, congestion Respiratory: denies: cough, shortness of breath, SOB with exertion, SOB at rest, wheezing Cardiovascular: denies: chest pain, palpitations Gastrointestinal: abdominal pain. denies: nausea, vomiting, diarrhea, constipation, hematemesis, melena, hematochezia Genitourinary: denies: urgency, dysuria, frequency, hematuria, discharge, abnormal menses, dyspareunia Musculoskeletal: denies: back pain, joint swelling, arthralgia Skin: denies: rash, lesions Neurological: denies: headache, weakness, numbness, paresthesias, confusion, abnormal gait, vertigo Psychiatric: denies: anxiety, depression, auditory hallucinations, visual hallucinations, homicidal thoughts, suicidal thoughts Hematological/Lymphatic: denies: easy bleeding, easy bruising, swollen glands ED Past Medical Hx - Past Medical History Previous Medical History?: Yes Hx Hypertension: No Hx Congestive Heart Failure: No Hx Diabetes: No Hx Deep Vein Thrombosis: No Hx Renal Disease: No Hx Sickle Cell Disease: No Hx Seizures: No Hx Psychiatric Treatment: Yes (anxiety) Hx Asthma: Yes (last used in 2016) Hx COPD: No Hx HIV: No - Surgical History Past Surgical History?: No - Social History Smoking Status: Never Smoker Substance Use Type: None - Medications Home Medications: Home Medications Medication Instructions Recorded Confirmed Last Taken Type Potassium Chloride 10 meq PO QDAY #3 capsule.er 08/29/14 04/30/18 Unknown Rx Vit-Fe Fumar-FA [ 1 each PO QDAY #90 tablet 08/29/14 04/30/18 11/03/14 10:00 Rx Vitamin] 1 tab cephALEXin [Keflex] 500 mg PO Q6H #28 capsule 08/29/14 04/30/18 Unknown Rx Ibuprofen 800 mg PO TID PRN #30 tablet 08/24/17 04/30/18 Unknown Rx cephALEXin [Keflex] 500 mg PO Q12HR #14 cap 08/24/17 04/30/18 Unknown Rx Ferrous Sulfate [Feosol 325 MG tab] 325 mg PO BID #60 tablet 05/02/18 Unknown Rx Ibuprofen [Motrin 600 MG tab] 600 mg PO Q6HR #30 tablet 05/02/18 Unknown Rx Vit-Fe Fumar-FA [ 1 each PO QDAY #30 tablet 05/02/18 Unknown Rx Vitamin] Naproxen 500 mg PO TID PRN #12 tablet 10/31/18 Unknown Rx ED Physical Exam - General Limitations: No Limitations General appearance: alert, in no apparent distress - Head Head exam: Present: atraumatic, normocephalic, normal inspection - Eye Eye exam: Present: normal appearance, PERRL, EOMI Pupils: Present: normal accommodation - ENT ENT exam: Present: normal exam, mucous membranes moist - Neck Neck exam: Present: normal inspection, full ROM - Respiratory Respiratory exam: Present: normal lung sounds bilaterally. Absent: respiratory distress, wheezes, rales, rhonchi, stridor - Cardiovascular Cardiovascular Exam: Present: regular rate, normal rhythm, normal heart sounds - GI/Abdominal GI/Abdominal exam: Present: soft. Absent: distended, tenderness, guarding, r ebound - Neurological Exam Neurological exam: Present: alert, oriented X3, CN II-XII intact, normal gait - Psychiatric Psychiatric exam: Present: normal affect, normal mood - Skin Skin exam: Present: intact ED Course Vital Signs 09/12/21 09/12/21 04:26 11:25 Temperature 98.0 F Pulse Rate 75 76 Respiratory 16 18 Rate Blood Pressure 140/80 Blood Pressure 132/81 [Left] O2 Sat by Pulse 97 100 Oximetry ED Medical Decision Making - Lab Data Result diagrams: 09/12/21 08:51 09/12/21 08:51 - Radiology Data Radiology results: report reviewed Patient: ABDIRAHMAN TOBAR MR#: [id number] : 1990 Acct:[id number] Age/Sex: 30 / F ADM Date: 09/12/21 Loc: ED Attending Dr: Ordering Physician: TAD LAMB Date of Service: 09/12/21 Procedure(s): US OB transvaginal Accession Number(s): [id number] cc: TAD LAMB Pelvic ultrasound INDICATION: Left lower quadrant pain FINDINGS: Single live intrauterine . No second pole noted the gestational sac measures 26.2 mm measuring 7 weeks 4 days. Schneider-rump length 2.1 mm measuring 7 weeks 1 day. heart rate 138. There is a cystic lesion left ovary measuring 5 x 3 x 8 mm. Otherwise ovaries appear normal. Uterus measures 12 x 5 x 6 cm. IMPRESSION: Single live intrauterine measuring 7 weeks 3 days. Signer Name: Cuong Mcdowell MD Signed: 09/12/2021 10:43 AM Workstation Name: [id number] Transcribed By: JOSTIN Dictated By: DOUG CMDOWELL MD Electronically Authenticated By: DOUG MCDOWELL MD Signed Date/Time: 09/12/21 104 DD/ 41 TD/TT: - Medical Decision Making UA showed that patient had + HCG; labs and US then added. US shows 7 weeks 3 day IUP with no other abnormality. Patient currently resting comfortably. She is not in any significant distress. She has no vaginal bleeding. Abdomen soft and nontender. She is neurologically intact with a normal gait. Discussed all results with patient. Recommend follow-up with [facility] to start care and she can take Tylenol for any discomfort or pain and she can start taking [id number] vitamins. Patient vital signs are stable. Patient expressed understanding of all instructions and agree with plan. Patient stable at time of discharge. Critical care attestation.: If time is entered above; I have spent that time in minutes in the direct care of this critically ill patient, excluding procedure time. ED Disposition Clinical Impression: , incidental, Abdominal pain in Disposition: 01 HOME / SELF CARE / HOMELESS Is pt being admited?: No Does the pt Need Aspirin: No Condition: Stable Instructions: Abdominal Pain During , [id number], Abdominal Pain (ED) Additional Instructions: I recommend that you take Tylenol as needed for any pain. I do recommend that you follow-up with an [facility] to establish care; if you do not have an [facility] will be provided for you in your discharge instructions. I do recommend that you start taking vitamins from [id number]. Return to the ER if your symptoms worsens in any way. Referrals: PRIMARY CAREMD [Primary Care Provider] - 3-5 Days [facility] [Provider Group] - 3-5 Days [facility] [Provider Group] - 3-5 Days Time of Disposition: 11:00
[2021-09-12 08:18] LABS: Bilirubin,Urine NEG (Negative); Blood,Urine NEG (Negative); Color,Urine Yellow (Yellow); Mucus,Urine 1+ /HPF; Protein,Urine <15 mg/dL mg/dL (Negative); Urobilinogen,Urine < 2.0 mg/dL (<2.0)
[2021-09-12 08:27] LABS: HCG Qualitative,Urine Positive (Negative)
[2021-09-12 09:12] LABS: Basophils # (Auto) 0.1 K/mm3 (0.0-0.1); Eosinophils # (Auto) 0.1 K/mm3 (0.0-0.4); Eosinophils % (Auto) 1.3 % (0.0-4.3); Hematocrit 35.9 % (30.3-42.9); Hemoglobin 11.2 gm/dl (10.1-14.3); Lymphocytes # (Auto) 2.6 K/mm3 (1.2-5.4); Lymphocytes % (Auto) 32.7 % (13.4-35.0); Mean Corpuscular HGB Conc 31 % (30-34); Mean Corpuscular Volume 76 fl (79-97); Monocytes # (Auto) 0.7 K/mm3 (0.0-0.8); Monocytes % (Auto) 8.7 % (0.0-7.3); Platelet Count 353 K/mm3 (140-440); Red Blood Count 4.76 M/mm3 (3.65-5.03); Red Cell Distribution Width 17.2 % (13.2-15.2)
[2021-09-12 09:38] LABS: Blood Urea Nitrogen 5 mg/dL (7-17); Hemolysis Index 2
[2021-09-12 09:41] LABS: BUN/Creatinine Ratio 13
--- NOTE | 2021-09-12 10:48 | Ultrasound Report ---
Pelvic ultrasound INDICATION: Left lower quadrant pain FINDINGS: Single live intrauterine . No second pole noted the gestational sac measures 26.2 mm measuring 7 weeks 4 days. Whittier-rump length 2.1 mm measuring 7 weeks 1 day. heart rate 138. There is a cystic lesion left ovary measuring 5 x 3 x 8 mm. Otherwise ovaries appear normal. Ut erus measures 12 x 5 x 6 cm. IMPRESSION: Single live intrauterine measuring 7 weeks 3 days. Signer Name: Cuong Johnson MD Signed: 09/12/2021 10:43 AM Workstation Name: [id number]
[2021-09-12 11:26] VITALS: BP 132/81
== END 2021-09-12 11:25 | disposition home or self-care (01) ==
LOC: ED 03:11
DX: O26.891 Other specified pregnancy related conditions, first trimester (principal); R10.32 Left lower quadrant pain; F41.9 Anxiety disorder, unspecified; J45.909 Unspecified asthma, uncomplicated; Z91.040 Latex allergy status; Z79.899 Other long term (current) drug therapy; Z3A.01 Less than 8 weeks gestation of pregnancy
CPT/HCPCS: 36415; 76817; 80048; 81001; 81025; 84702; 85025; 99284

== ENCOUNTER 2022-02-08 22:59 | Outpatient (CLI) | payer OTHER ==
[2022-02-08 23:37] VITALS: BP 129/75
--- NOTE | 2022-02-09 01:34 | Ultrasound Report ---
US OB follow up INDICATION / CLINICAL INFORMATION: JOHN,EFW,CERVICAL LENGTH COMPARISON: OB ultrasound 09/12/2021 TECHNIQUE: Using a transcutaneous probe, multiple grayscale, color Doppler, and spectral Doppler imag es of the uterus and fetus were captured and stored. FINDINGS: Single cephalic fetus with heart rate of 142 bpm demonstrated. Amniotic fluid index measures 14.0 cm, within normal limits. Maternal cervix measures 4 cm. Endocervical canal not well visualized. Biparietal Diameter = 7.0 cm = 28, 1 weeks, days Head Circumference = 26.4 cm = 28, 5 weeks, days Abdominal Circumference = 24.5 cm = 28, 5 weeks, days Femur Length = 5.6 cm = 29, 4 weeks, days Average Ultrasound Age (AUA) = 28, 6 weeks, days. EDC 04/28/2022. Based on last menstrual period of 07/22/2021, the clinical aspect of gestational age is 28 weeks 6 da ys. Estimated weight = 1314 g. Growth percentile 41%.. IMPRESSION: 1. Single living fetus with estimated weight of 1014 g, normal JOHN. 2. Maternal cervix measures 4 cm. Signer Name: John Chance II, MD Signed: 02/09/2022 1:30 AM Workstation Name: [id number]
== END 2022-02-09 02:00 | disposition home or self-care (01) ==
LOC: TRG 22:59 → APU 23:06 → TRG 02-09 02:00
PROVIDERS: ATTEND Obstetrics & Gynecology
DX: O62.9 Abnormality of forces of labor, unspecified (principal); Z3A.28 28 weeks gestation of pregnancy
CPT/HCPCS: 36415; 76816; 82731

== ENCOUNTER 2022-04-19 22:45 | Outpatient (CLI) | payer OTHER ==
[2022-04-19 23:19] VITALS: BP 119/83
--- NOTE | 2022-04-20 03:47 | Ultrasound Report ---
ULTRASOUND OBSTETRIC LIMITED INDICATION / CLINICAL INFORMATION: EFW JOHN. Clinical Gestational Age (GA) in weeks, days: 38 weeks 6 days TECHNIQUE: Transabdominal. COMPARISON: None available. FINDINGS: Single live intrauterine . measurements correspond to a gestational age of 3 7 weeks and 4 days with estimated weight of 3290 g. HEART RATE (beats per minute): 128 AMNIOTIC FLUID INDEX (cm) = 11.2 (normal = 7-24 cm) PRESENTATION: Cephalic. ADDITIONAL FINDINGS: None. IMPRESSION: 1. Single live intrauterine with ultrasound age of 37 weeks 4 days. Estimate weight o f 3290 g. 2. Amniotic fluid index is within normal limits, measuring 11.2 cm. Signer Name: Errol Caal MD Signed: 04/20/2022 3:43 AM Workstation Name: [id number]
== END 2022-04-20 02:56 | disposition home or self-care (01) ==
LOC: TRG 22:45 → APU 22:49 → TRG 04-20 02:56
PROVIDERS: ATTEND Obstetrics & Gynecology
DX: Z34.93 Encounter for supervision of normal pregnancy, unspecified, third trimester (principal); Z3A.38 38 weeks gestation of pregnancy
CPT/HCPCS: 59025; 76816

== ENCOUNTER 2022-04-20 04:43 | Inpatient (IN) | payer OTHER ==
[2022-04-20] MEDS ORDERED: BUTORPHANOL 2 MG/1 ML INJ IV PRN (04:46)
[2022-04-20] MEDS ORDERED: METHYLERGONOVINE MALEATE 0.2 MG/ML VIAL IM PRN (04:46)
[2022-04-20] MEDS ORDERED: ACETAMINOPHEN 325 MG TAB PO PRN ×2 (04:46→05:54)
[2022-04-20] MEDS ORDERED: CARBOPROST TROMETHAMINE 250 MCG/1 ML INJ IM PRN (04:46)
[2022-04-20] MEDS ORDERED: fentaNYL 100 MCG/2 ML INJ IV PRN (04:46)
--- NOTE | 2022-04-20 04:46 | History and Physical Report ---
History of Present Illness Date of examination: 04/20/22 Date of admission: 04/20/2022 Chief complaint: 31 y/o at History of present illness: The patient is a 31 year-old at 38-6/7 weeks gestation that presents to OB triage reporting regular and painful contractions. She denies vaginal bleeding or leakage of fluids. There is good movement. In OB triage, the cervical exam was 6 cm dilated. She is admitted to Labor and Delivery in active labor. Past History Past Medical History: asthma Past Surgical History: no surgical history Family/Genetic History: none Social history: no significant social history - Obstetrical History Expected Date of Delivery: 04/28/22 Actual Gestation: 38 Week(s) 6 Day(s) : 4 Para: 3 Hx # Term Pregnancies: 3 Number of Pregnancies: 0 Spontaneous Abortions: 0 Induced : 0 Number of Living Children: 3 Medications and Allergies Allergies Allergy/AdvReac Type Severity Reaction Status Date / Time apple Allergy Swelling Verified 04/19/22 23:21 latex Allergy Swelling Verified 11/07/14 19:34 Home Medications Medication Instructions Recorded Confirmed Last Taken Type Potassium Chloride 10 meq PO QDAY #3 capsule.er 08/29/14 04/30/18 Unknown Rx Vit-Fe Fumar-FA [ 1 each PO QDAY #90 tablet 08/29/14 04/30/18 11/03/14 10:00 Rx Vitamin] 1 tab cephALEXin [Keflex] 500 mg PO Q6H #28 capsule 08/29/14 04/30/18 Unknown Rx Ibuprofen 800 mg PO TID PRN #30 tablet 08/24/17 04/30/18 Unknown Rx cephALEXin [Keflex] 500 mg PO Q12HR #14 cap 08/24/17 04/30/18 Unknown Rx Ferrous Sulfate [Feosol 325 MG tab] 325 mg PO BID #60 tablet 05/02/18 Unknown Rx Ibuprofen [Motrin 600 MG tab] 600 mg PO Q6HR #30 tablet 05/02/18 Unknown Rx Vit-Fe Fumar-FA [ 1 each PO QDAY #30 tablet 05/02/18 Unknown Rx Vitamin] Naproxen 500 mg PO TID PRN #12 tablet 10/31/18 Unknown Rx Review of Systems All systems: negative - Physical Exam Breasts: Positive: normal Cardiovascular: Regular rate Abdomen: Positive: normal appearance Genitourinary (Female): Positive: normal perenium Vulva: both: normal Vagina: Positive: normal moisture Uterus: Positive: enlarged Adnexa: both: normal Anus/Rectum: Positive: normal perianal skin Extremities: Positive: normal Deep Tendon Reflex Grade: Normal +2 - Obstetrical FHR: category 1 Uterine Contraction Monitor Mode: External Cervical Dilatation: 6 Cervical Effacement Percentage: 90 station: -2 Uterine Contraction Frequency (min): 5 Uterine Contraction Pattern: Regular Results Result Diagrams: 04/20/22 04:51 All other labs normal. Ultrasound: report reviewed, image reviewed Assessment and Plan - Patient Problems (1) Active labor at term Current Visit: Yes Status: Acute Plan to address problem: care is up-to-date. (2) 38 weeks gestation of Onset Date: 04/30/18 Current Visit: No Status: Resolved Plan to address problem: The patient is in active labor. Admit to Labor and Delivery for expectant management.
[2022-04-20] MEDS ORDERED: LACTATED RINGERS 1,000 ML IV SCH (05:00)
[2022-04-20] MEDS ORDERED: OXYTOCIN 10 UNIT/1 ML INJ ONE (05:26)
[2022-04-20 05:33] LABS: Hematocrit 29.7 % (30.3-42.9); Hemoglobin 9.7 gm/dl (10.1-14.3); Mean Corpuscular HGB Conc 33 % (30-34); Mean Corpuscular Volume 70 fl (79-97); Platelet Count 281 K/mm3 (140-440); Red Blood Count 4.23 M/mm3 (3.65-5.03); Red Cell Distribution Width 17.7 % (13.2-15.2)
[2022-04-20] MEDS ORDERED: MAGNESIUM HYDROXIDE (MOM) ORAL LIQD UDC PO PRN (05:54)
[2022-04-20] MEDS ORDERED: LANOLIN/ZINC/DIMETHICONE (LANSINOH) 7 GM TP PRN (05:54)
[2022-04-20] MEDS ORDERED: BENZOCAINE/MENTHOL 20/0.5% TOP SPRAY 56 GM TP PRN (05:54)
[2022-04-20] MEDS ORDERED: WITCH HAZEL/ GLYCERIN PAD TP PRN (05:54)
[2022-04-20] MEDS: OXYTOCIN DRIP 30 UNITS/500 ML BAG IV SCH ×2 (06:16→07:43)
[2022-04-20] MEDS ORDERED: fentaNYL 100 MCG/2 ML INJ ONE (07:25)
[2022-04-20] MEDS ORDERED: LACTATED RINGERS 1,000 ML ONE (07:25)
[2022-04-20] MEDS ORDERED: OXYTOCIN DRIP 30,000 MILLIUNITS/500 ML BAG IV ONE ×2 (07:26→08:00)
[2022-04-20] MEDS ORDERED: miSOPROStol 200 MCG TAB ONE (07:35)
[2022-04-20] MEDS ORDERED: miSOPROStol 200 MCG TAB PR ONE (07:48)
--- NOTE | 2022-04-20 08:25 | Procedure Note ---
<CRISTAL CASIANOJORIE ABEL - Last Filed: 04/20/22 08:19> OB Delivery Note - Delivery Date of Delivery: 04/20/22 Estimated blood loss: other (350) - Vaginal Delivery presentation: vertex Intrapartum events: none Delivery induction: none Delivery monitor: external FHT, external uterine Route of delivery: Delivery placenta: spontaneous ([id number]) Delivery cord: 3 umbilical vessels Episiotomy: none Delivery laceration: none Anesthesia: none Delivery comments: Was called for delivery, approx 7 min later Rn called stating pt delivered viable baby girl, and placenta delivery spontaneously. On my arrival, multiple clots was removed from lower uterine segment. IV pain med given, Pitocin hung, and Cytotec 800mcg placed via rectum. FF@U, no active bleeding noted [id number] m, VSS. both mother and doing well. - A Infant Gender: Female ([id number]) <LOPEZ PAGAN - Last Filed: 04/20/22 08:36> OB Delivery Note - Vaginal Delivery comments: Patient seen and examined. Agree with above.
[2022-04-20] MEDS: DOCUSATE SODIUM 100 MG CAP PO SCH (13:42)
[2022-04-20] MEDS: PRENATAL VIT27-FE FUMARATE-FOLIC ACID VIT TAB PO SCH (13:43)
[2022-04-20] MEDS: HYDROcodone/ACETAMINOPHEN 5-325 MG TAB PO PRN (18:22)
[2022-04-21] MEDS: HYDROcodone/ACETAMINOPHEN 5-325 MG TAB PO PRN ×4 (04:51→21:56)
[2022-04-21] MEDS: IBUPROFEN 800 MG TAB PO PRN (06:25)
[2022-04-21 09:45] LABS: Mean Corpuscular HGB Conc 29 % (30-34); Mean Corpuscular Volume 73 fl (79-97); Platelet Count 243 K/mm3 (140-440); Red Blood Count 3.43 M/mm3 (3.65-5.03); Red Cell Distribution Width 17.7 % (13.2-15.2)
[2022-04-21 09:48] LABS: Hemoglobin 7.4 gm/dl (10.1-14.3)
[2022-04-21] MEDS: DOCUSATE SODIUM 100 MG CAP PO SCH ×2 (11:56→21:41)
[2022-04-21] MEDS: PRENATAL VIT27-FE FUMARATE-FOLIC ACID VIT TAB PO SCH (11:57)
--- NOTE | 2022-04-21 14:24 | Progress Note ---
Assessment and Plan A: PP Day #1 Asymptomatic Anemia P: Follow Routine Orders Continue PO FeSO4 as Ordered Infed 100mg IM x 1 dose D/C home in the AM RTO in 6 Weeks Subjective - Subjective Date of service: 04/21/22 Patient reports: appetite normal, voiding normally, pain well controlled, flatus, ambulating normally : doing well, bottle feeding Objective - Vital Signs Latest vital signs: Vital Signs Temp Pulse Resp BP BP Pulse Ox Pulse Ox 04/21/22 08:15 100 04/21/22 07:23 98.0 F 79 20 112/63 96 04/21/22 06:25 16 04/21/22 05:51 16 04/20/22 23:34 98.2 F 89 20 126/72 99 04/20/22 20:00 100 04/20/22 16:11 98.6 F 84 18 112/67 100 Intake and Output 04/20/22 04/21/22 04/21/22 22:59 06:59 14:59 Intake Total 440 240 240 Balance 440 240 240 Intake: Oral 440 240 240 Other: Total, Intake Amount 120 240 240 # Voids Void 1 1 - Exam Breasts: Present: normal Cardiovascular: Present: Regular rate Lungs: Present: Clear to auscultation, Normal air movement Abdomen: Present: normal appearance, soft, normal bowel sounds Uterus: Present: normal, firm, fundal height below umbilicus Extremities: Present: normal - Labs Labs: Abnormal lab results 04/21/22 Range/Units 07:49 RBC 3.43 L (3.65-5.03) M/mm3 Hgb 7.4 L (10.1-14.3) gm/dl Hct 25.0 L (30.3-42.9) % MCV 73 L (79-97) fl MCH 21 L (28-32) pg MCHC 29 L (30-34) % RDW 17.7 H (13.2-15.2) %
[2022-04-21] MEDS ORDERED: IRON DEXTRAN COMPLEX 100 MG/2 ML INJ IM ONE (14:25)
--- NOTE | 2022-04-21 14:30 | Discharge Summary ---
Providers - Providers Date of Admission: 04/20/22 04:46 Date of discharge: 04/22/22 Attending physician: EDSON LOMELI Primary care physician: EDSON LOMLEI Hospitalization Reason for admission: active labor Delivery: Episiotomy: none Laceration: none Other procedures: none complications: none Discharge diagnosis: IUP at term delivered Breeding baby: female Condition at discharge: Good Disposition: 01 HOME / SELF CARE / HOMELESS Plan - Provider Discharge Summary Activity: routine, no sex for 6 weeks, no heavy lifting 4 weeks, no strenuous exercise Diet: routine Instructions: routine Additional instructions: [] Smoking cessation referral if applicable(refer to patient education folder for contact #) [] Refer to [facility] Booklet Call your doctor immediately for: * Fever > 100.5 * Heavy vaginal bleeding ( >1 pad per hour) * Severe persistent headache * Shortness of breath * Reddened, hot, painful area to leg or breast * Drainage or odor from incision. * Keep incision clean and dry at all times and follow doctor's instructions regarding bathing/showering - Follow up plan Follow up: EDSON LOMELI MD [Primary Care Provider] - 6 Weeks
[2022-04-21] MEDS: FERROUS SULFATE 325 MG TAB PO SCH (21:42)
[2022-04-22 08:17] VITALS: BP 138/80
[2022-04-22] MEDS: PRENATAL VIT27-FE FUMARATE-FOLIC ACID VIT TAB PO SCH (09:29)
[2022-04-22] MEDS: DOCUSATE SODIUM 100 MG CAP PO SCH (09:29)
[2022-04-22] MEDS: FERROUS SULFATE 325 MG TAB PO SCH (09:29)
[2022-04-22] MEDS: IBUPROFEN 800 MG TAB PO PRN (09:32)
[2022-04-22 10:02] LABS: Basophils % (Auto) 0.2 % (0.0-1.8); Eosinophils # (Auto) 0.2 K/mm3 (0.0-0.4); Eosinophils % (Auto) 2.8 % (0.0-4.3); Hemoglobin 7.5 gm/dl (10.1-14.3); Lymphocytes # (Auto) 2.8 K/mm3 (1.2-5.4); Lymphocytes % (Auto) 36.4 % (13.4-35.0); Mean Corpuscular HGB Conc 31 % (30-34); Mean Corpuscular Volume 72 fl (79-97); Monocytes # (Auto) 0.6 K/mm3 (0.0-0.8); Monocytes % (Auto) 8.2 % (0.0-7.3); Platelet Count 267 K/mm3 (140-440); Red Blood Count 3.33 M/mm3 (3.65-5.03)
== END 2022-04-22 18:05 | disposition home or self-care (01) | DRG 775 ==
LOC: TRG 04:43 → APU 04:44 → TRG 04:46 → LD 04:46 → OB 09:33
PROVIDERS: ADMIT Obstetrics & Gynecology; ATTEND Obstetrics & Gynecology
PROC: 10E0XZZ Delivery of Products of Conception, External Approach (ICD-10-PCS; principal; 2022-04-20)
DX: O99.52 Diseases of the respiratory system complicating childbirth (principal); Z3A.38 38 weeks gestation of pregnancy; Z37.0 Single live birth; Z20.822 Contact with and (suspected) exposure to COVID-19; J45.909 Unspecified asthma, uncomplicated; Z91.040 Latex allergy status; Z91.018 Allergy to other foods; O90.81 Anemia of the puerperium
CPT/HCPCS: 36415; 59025; 76816; 85025; 85027; 86850; 86900; 86901; G0378; J2590; J3010; U0003